=== PATIENT | female | born 1975 | race Caucasian/White ===

== ENCOUNTER 2018-06-10 08:22 | Day surgery (SDC) | payer OTHER, SELFPAY ==
[2018-06-10 08:58] LABS: Internal QC Validated? YES +Cl - CLEAR BKGD; Pregnancy, Urine Negative Negative
[2018-06-10 09:02] VITALS: BP 132/79; PULSE 65; RESP 16; TEMP 36.8; O2SAT 100; BMI 46.5
[2018-06-10 09:55] VITALS: BP 118/49; BP 132/79; PULSE 82; RESP 16; TEMP 36.8; O2SAT 93
--- NOTE | 2018-06-10 09:57 | PCM.OPRPT ---
Report of Operation Date of Procedure: 06/10/18 Pre-Operative Diagnosis: IUD removal, IUD insertion Post-Operative Diagnosis: Same plus stenotic internal cervical loss Surgery/Procedure Performed:: Hysteroscopy with Mirena removal and new Mirena IUD insertion Description of Surgical Findings:: Normal-appearing cervix, vagina, and endometrial cavity. Intact Mirena in the endometrial canal. blindstitch lining feller: None Type of Anesthesia:: MAC/Supplemental/Local Anesthesiologist: Vijay Chahal Special Medications: None Specimen's removed: IUD, not sent to pathology Drains: None Estimated Blood Loss (mL): 5 Fluids Replaced: 600 cc of LR Description of Procedure: The patient was taken to the OR where she was prepped and draped in dorsal lithotomy position. The weighted speculum was placed in the vagina and the anterior lip of the cervix was grasped with a single-tooth tenaculum. A paracervical block was administered with 20 cc1% lidocaine with 1-100,000 epinephrine solution. The cervix was dilated serially with Hegar dilators. The internal cervical loss was somewhat stenotic but able to be dilated carefully. The 5mm hysteroscope was placed into the uterine cavity and the above findings were noted. Bilateral tubal ostia were identified. T hysteroscopic grasper was used to grasp the IUD strings and the IUD and hysteroscope were brought out together from the cervix and vagina. The IUD was intact and was not stuck in the endometrium or embedded. The instruments were removed from the vagina. The specimen was handed off and sent to pathology. All sponge and needle counts were correct. Vaginal sweep was performed by me. The patient was awakened and taken to the recovery room in stable condition. Hysteroscopic ins: 100 cc normal saline Hysteroscopic outs: 50 cc Findings: Endometrial cavity: Normal, no fibroids or polyps noted Cervix: Normal Vagina: Normal
[2018-06-10 10:00] VITALS: BP 114/59; BP 132/79; PULSE 78; RESP 16; O2SAT 95
[2018-06-10 10:05] VITALS: BP 120/59; BP 132/79; PULSE 80; RESP 18; O2SAT 95
[2018-06-10 10:10] VITALS: BP 122/61; BP 132/79; PULSE 71; RESP 18; TEMP 36.6; O2SAT 100
--- OUTSIDE RECORDS SUMMARY | 2018-08-05 08:06 | XMS RPT_ITS ---
:1975 Author Organization OHIP Care Team Providers Name Role Phone MICHAEL WILKES Attending Unavailable RAYSAJOSSELYN (SIDING APPLICATOR) Attending Unavailable RAYSA, JOSSELYN (SIDING APPLICATOR) Referring Unavailable RAYSA, JOSSELYN (SIDING APPLICATOR) Referring Unavailable RAYSA, JOSSELYN (SIDING APPLICATOR) Attending Unavailable CHAPIS WOLFE (GINA) Attending Unavailable Michael Wilkes Attending Unavailable Michael Wilkes Referring Unavailable Brandt Guillaume Primary Care Unavailable PROBLEMS PROBLEMS DATE TYPE CONDITION / CODE ATTENDING STATUS SOURCE 06/07/2018 Active Encounter for NA Active [facility] screening [facility] [place] mammogram for Repository malignant neoplasm of breast / Z12.31(ICD-10) PROCEDURES PROCEDURES No Procedure Records FoundRESULTS RESULTS PROGRESS Observed: 06/11/2018 Status: COMPLETED Source: [place] 4:51 PM [facility] REPOSITORY HNO ID: [id number] Author: Lizy Cavanaugh Service: (none) Author Type: Physician Type: Progress Notes Filed: 06/11/2018 4:51 PM Note Text: Patient underwent hysteroscopy with IUD removal at [facility] without complications. An new IUD was placed. It was a Mirena. Strings were cut to 2.5 cm. Patient was discharged home with routine instructions. She is to follow up in 1 month. Lizy Cavanaugh MD OPERATIVE REPORT Observed: 06/10/2018 Status: F Source: [place] 10:01 AM [facility] REPOSITORY [facility] Medical Records Department [address] [place] [id number] Operative Report 06/10/18 0957 MR#: [id number] Acct: [id number] Name: PETRA VILLA Rep #: [id number] : 1975 42 From: Lizy Cavanaugh MD PCP: Brandt Guillaume MD Status: [facility] Y Location: [place] [address] Report of Operation Date of Procedure: 06/10/18 Pre-Operative Diagnosis: IUD removal, IUD insertion Post-Operative Diagnosis: Same plus stenotic internal cervical loss Surgery/Procedure Performed:: Hysteroscopy with Mirena removal and new Mirena IUD insertion Description of Surgical Findings:: Normal-appearing cervix, vagina, and endometrial cavity. Intact Mirena in the endometrial canal. medical officer: None Type of Anesthesia:: MAC/Supplemental/Local Anesthesiologist: Vijay Chahal Special Medications: None Specimen's removed: IUD, not sent to pathology Drains: None Estimated Blood Loss (mL): 5 Fluids Replaced: 600 cc of LR Description of Procedure: The patient was taken to the OR where she was prepped and draped in dorsal lithotomy position. The weighted speculum was placed in the vagina and the anterior lip of the cervix was grasped with a single-tooth tenaculum. A paracervical block was administered with 20 cc1% lidocaine with 1-100,000 epinephrine solution. The cervix was dilated serially with Hegar dilators. The internal cervical loss was somewhat stenotic but able to be dilated carefully. The 5mm hysteroscope was placed into the uterine cavity and the above findings were noted. Bilateral tubal ostia were identified. T hysteroscopic grasper was used to grasp the IUD strings and the IUD and hysteroscope were brought out together from the cervix and vagina. The IUD was intact and was not stuck in the endometrium or embedded. The instruments were removed from the vagina. The specimen was handed off and sent to pathology. All sponge and needle counts were correct. Vaginal sweep was performed by me. The patient was awakened and taken to the recovery room in stable condition. Hysteroscopic ins: 100 cc normal saline Hysteroscopic outs: 50 cc Findings: Endometrial cavity: Normal, no fibroids or polyps noted Cervix: Normal Vagina: Normal 06/10/18 1001 <Electronically signed by Lizy Cavanaugh MD> Date Lizy Cavanaugh MD CC: Brandt Guillaume MD; Lizy Cavanaugh MD; Michael Wilkes DO Signed ,URINE Collected: 06/10/2018 Status: F Source: [place] 8:50 AM [facility] REPOSITORY TYPE CODE TESTS RESULT OUT OF REFERENCE UNITS RANGE LAB L400.8000 Negative Normal HCGUQUAL Negative Result Comment: Very dilute urine specimens, as indicated by a low specific gravity, may not contain market survey representative levels of hCG. If is still suspected, a first morning urine specimen should be collected 48 hours later and tested. Performed By: #### [id number] #### [facility] [address] [place], [address] CNOP Observed: 06/10/2018 Status: COMPLETED Source: [place] 12:00 AM [facility] REPOS[facility] Operative Note (Enc) (WOOB) Progress Notes: Lizy Cavanaugh MD 06/11/2018 4:51 PM Signed Patient underwent hysteroscopy with IUD removal at [facility] without complications. An new IUD was placed. It was a Mirena. Strings were cut to 2.5 cm. Patient was discharged home with routine instructions. She is to follow up in 1 month. Lizy Cavanaugh MD Encounter Status:Closed by LIZY CAVANAUGH MD on 06/11/18 HISTORY PHYSICAL Observed: 06/08/2018 Status: COMPLETED Source: [place] 12:05 PM [facility] REPOSIT[facility] HNO ID: [id number] Author: Michael Wilkes Service: (none) Author Type: Physician Type: HANDP Filed: 06/08/2018 12:09 PM Note Text: Petra Groves is a 42 year old female who presents for pre-op HANDP. HPI: Doing well. No complaints or symptoms. Has Mirena IUD in place. Placed 03/23/2013. IUD was unable to be removed in the office on 06/07/18 as strings were not visible, and IUD was felt to be embedded anteriorly. PAST MEDICAL HISTORY Diagnosis Date - Abnormal Papanicolaou smear of cervix and cervical HPV 1996 colposcopy-negative since - Allergic rhinitis, cause unspecified - Human papillomavirus in conditions classified elsewhere and of unspecified site - Migraine - Premenstrual tension syndromes PMDD PAST SURGICAL HISTORY Procedure Laterality Date - COLPOSCOPY (VAGINOSCOPY) 12/14/2007 Colposcopy, ECC, JUNIOR pap - GASTRIC BYPASS,OBESE<100CM JARETT-EN-Y 12/14 [place] - INCISION EARDRUM,ASPIR,GEN ANESTH Myringotomy/tubes - LAPAROSCOPIC CHOLEYCYSTECTOMY 01/14 - REMOVE TONSILS/ADENOIDS,<12 Y/O Tonsil/adenoidectomy FAMILY HISTORY Problem Relation Age of Onset - Thyroid Mother - Asthma Mother - GI Mother GERD - Diabetes Mother - other (Migraine) Mother - Lipids Father - Hypertension Father - Diabetes Maternal Grandmother - Stroke Maternal Grandmother - Diabetes Maternal Grandfather - Diabetes Paternal Grandmother - Diabetes Maternal Aunt - Diabetes Maternal Uncle - Cancer Paternal Grandfather pancreatic - other (Glaucoma) Paternal Grandfather - other (Nephrolithiasis) Paternal Grandfather - Seizures Maternal Aunt x 2 Social History Marital status: Spouse name: Lewis Years of education: Number of children: 1 Occupational History Occupation Employer Comment [employer] * [employer]* [employer] * Social History Main Topics Smoking status: Never Smoker Smokeless tobacco: Never Used Alcohol use: Yes Comment: rarely Drug use: No Sexual activity: Yes Partners with: Male control/protection: IUD Comment: mirena 03/2013 Social History Narrative Merged History Encounter Current Outpatient Prescriptions: levonorgestrel (MIRENA) 20 mcg/24 hour (5 years) IUD 1 Each by INTRAUTERINE route one time only. No current facility-administered medications for this visit. Allergies As of Date: 06/08/2018 Allergen Noted Reaction ENVIRONMENTAL [OTHER] 10/27/2002 Unknown NO KNOWN DRUG ALLERGIES [OTHER] 07/27/2001 Fully Assessed 06/08/2018 REVIEW OF SYSTEMS Expanded ROS: GENERAL: No fevers HEENT: Negative for frequent or significant headaches NECK: Negative for goiter RESPIRATORY: No SOB CARDIOVASCULAR: No CP GI: No nausea, vomiting, or diarrhea : No history of dysuria, frequency or incontinence DIRECTOR OF RESEARCH AND DEVELOPMENT: +Hx of menorrhagia MUSCULOSKELETAL: Negative for joint pain or swelling, back pain or muscle pain PSYCH: No hx of depression/anxiety ENDOCRINE: No hx of diabetes NEURO: No history of syncope, paralysis, seizures or tremors Allergies and current medication updated:Yes EXAM: BP 108/70 Wt 302 lb (137.0kg) GENERAL: pleasant, female in no apparent distress HEENT: Normocephalic and atraumatic NECK: full range of motion DERMATOLOGY: Normal and without lesions CHEST: Normal inspiratory effort NEURO: exam grossly non-focal EXTREMITIES: normal ASSESSMENT AND PLAN: Encounter Diagnosis ICD-10-CM 1. IUD (intrauterine device) in place Z97.5 Discussed hysteroscopic removal of Mirena IUD, and re-insertion of Mirena IUD. Reviewed risks of surgery. Discussed alternative control options. Patient agreeable to surgery and consent signed. Discussed what to do prior to surgery, the surgery in detail, and recovery/post-op expectations. Michael Wilkes DO CNOV Observed: 06/08/2018 Status: COMPLETED Source: [place] 11:30 AM [facility] REPOSITORY Office Visit (WOOB) PETRA VILLA ([id number]) 1975 F Date Time Provider Department 06/08/18 11:30 AM MICHAEL WILKES During your visit today, we recorded the following information about you: Blood pressure Weight 108/70 137 kg Michael Wilkes MD 06/08/2018 12:09 PM Signed Petra Groves is a 42 year old female who presents for pre-op HANDP. HPI: Doing well. No complaints or symptoms. Has Mirena IUD in place. Placed 03/23/2013. IUD was unable to be removed in the office on 06/07/18 as strings were not visible, and IUD was felt to be embedded anteriorly. PAST MEDICAL HISTORY Diagnosis Date - Abnormal Papanicolaou smear of cervix and cervical HPV 1996 colposcopy-negative since - Allergic rhinitis, cause unspecified - Human papillomavirus in conditions classified elsewhere and of unspecified site - Migraine - Premenstrual tension syndromes PMDD PAST SURGICAL HISTORY Procedure Laterality Date - COLPOSCOPY (VAGINOSCOPY) 12/14/2007 Colposcopy, ECC, JUNIOR pap - GASTRIC BYPASS,OBESE<100CM JARETT-EN-Y 12/14 [place] - INCISION EARDRUM,ASPIR,GEN ANESTH Myringotomy/tubes - LAPAROSCOPIC CHOLEYCYSTECTOMY 01/14 - REMOVE TONSILS/ADENOIDS,<12 Y/O Tonsil/adenoidectomy FAMILY HISTORY Problem Relation Age of Onset - Thyroid Mother - Asthma Mother - GI Mother GERD - Diabetes Mother - other (Migraine) Mother - Lipids Father - Hypertension Father - Diabetes Maternal Grandmother - Stroke Maternal Grandmother - Diabetes Maternal Grandfather - Diabetes Paternal Grandmother - Diabetes Maternal Aunt - Diabetes Maternal Uncle - Cancer Paternal Grandfather pancreatic - other (Glaucoma) Paternal Grandfather - other (Nephrolithiasis) Paternal Grandfather - Seizures Maternal Aunt x 2 Social History Marital status: Spouse name: Lewis Years of education: Number of children: 1 Occupational History Occupation Employer Comment [employer] * [employer]* [employer] * Social History Main Topics Smoking status: Never Smoker Smokeless tobacco: Never Used Alcohol use: Yes Comment: rarely Drug use: No Sexual activity: Yes Partners with: Male control/protection: IUD Comment: mirena 03/2013 Social History Narrative Merged History Encounter Current Outpatient Prescriptions: levonorgestrel (MIRENA) 20 mcg/24 hour (5 years) IUD 1 Each by INTRAUTERINE route one time only. No current facility-administered medications for this visit. Allergies As of Date: 06/08/2018 Allergen Noted Reaction ENVIRONMENTAL [OTHER] 10/27/2002 Unknown NO KNOWN DRUG ALLERGIES [OTHER] 07/27/2001 Fully Assessed 06/08/2018 REVIEW OF SYSTEMS Expanded ROS: GENERAL: No fevers HEENT: Negative for frequent or significant headaches NECK: Negative for goiter RESPIRATORY: No SOB CARDIOVASCULAR: No CP GI: No nausea, vomiting, or diarrhea : No history of dysuria, frequency or incontinence DIRECTOR OF RESEARCH AND DEVELOPMENT: +Hx of menorrhagia MUSCULOSKELETAL: Negative for joint pain or swelling, back pain or muscle pain PSYCH: No hx of depression/anxiety ENDOCRINE: No hx of diabetes NEURO: No history of syncope, paralysis, seizures or tremors Allergies and current medication updated:Yes EXAM: BP 108/70 Wt 302 lb (137.0kg) GENERAL: pleasant, female in no apparent distress HEENT: Normocephalic and atraumatic NECK: full range of motion DERMATOLOGY: Normal and without lesions CHEST: Normal inspiratory effort NEURO: exam grossly non-focal EXTREMITIES: normal ASSESSMENT AND PLAN: Encounter Diagnosis ICD-10-CM 1. IUD (intrauterine device) in place Z97.5 Discussed hysteroscopic removal of Mirena IUD, and re-insertion of Mirena IUD. Reviewed risks of surgery. Discussed alternative control options. Patient agreeable to surgery and consent signed. Discussed what to do prior to surgery, the surgery in detail, and recovery/post-op expectations. Michael Wilkes DO Referring Provider: SELF [[id number]] Allergies As of Date: 06/08/2018 Noted Allergy Reaction Environmental [Other] 10/27/2002 16 - Unknown Comments: Cats, dust mites, molds, trees, grasses, weeds. No Known Drug Allergies [Other] 07/27/2001 Date Reviewed: 06/08/2018 Reviewed by: Michael Wilkes - Fully Assessed Reason for Visit: Pre-Op Visit [1235] Primary Visit Diagnosis:IUD (intrauterine device) in place [Z97.5] Prescriptions as of 06/08/2018 Sig: LEVONORGESTREL 20 MCG/24 HR (* 1 Each by INTRAUTERINE route * Problem List As Of Date 06/08/2018 Noted Resolved Headache(784.0) [R51] INVALID FOR*05/29/2015 PREMENSTRUAL DYSTHYMIC DISORDER [F34.1] INVALID FOR*05/29/2015 MORBID OBESITY [E66.01] INVALID FOR* ALLERGIC RHINITIS NOS [J30.9] INVALID FOR* INTERTRIGO [L53.8] INVALID FOR*05/29/2015 GENERALIZED ANXIETY DIS [F41.1] INVALID FOR* Abnormal glandular Papanicolaou smear of cervix*INVALID FOR*01/25/2013 Vitamin D Deficiency [E55.9] INVALID FOR* Calcaneal spur [M77.30] INVALID FOR*05/29/2015 Screening breast examination [Z12.31] INVALID FOR*12/11/2016 Follow-up and Disposition History Recorded Encounter Status:Closed by MICHAEL WILKES MD on 06/08/18 SHAYY Observed: 06/07/2018 Status: COMPLETED Source: [place] 11:45 AM [facility] REPOSIT[facility] Office Visit (WOOB) CALVIN VILLAA Denise ([id number]) 1975 F Date Time Provider Department 06/07/18 11:45 AM JOSSELYN TABARES ([facility]) WOOB During your visit today, we recorded the following information about you: Blood pressure Weight 110/60 137.2 kg Josselyn Tabares APRN.CNP 06/07/2018 12:25 PM Signed Petra Groves presents for removal of IUD due to time for replacement. UNIVERSAL PROTOCOL / SAFETY CHECKLIST Procedure to be performed: Mirena removal Sign in Communication: Completed Time Out: Team Confirms the Correct Patient, Correct Procedure, Correct Site and Site Marking, Correct Position (if applicable), Prep and Dry Time (if applicable). Time: 1130 Affirmation of Time Out: YES Sign Out Discussion: Completed PROCEDURE: Not able to visualize strings, unable to tease string down, unable to dislodge with forceps. Multiple attempt made by myself and Dr Wilkes. ASSESSMENT/PLAN: IUD not removed Dr Wilkes spoke with pt regarding the need to perform hysteroscopy to removal and replace IUD. Pt verbalized understanding of the plan. Pt will be called with pre-op and surgery time. IVAN Baez LPN 06/07/2018 11:15 AM Signed POST IUD INSTRUCTIONS You may have irregular bleeding during the first 3 months of use. You may have mild-severe cramping for the next 48 hours. You may use over the counter medication (Motrin, Tylenol) as needed. Your IUD must be removed or replaced in 3 years if you have a Leola, 5 years if you have a Mirena or Kyleena and 10 years if you have a Paragard. Call my office for signs/symptoms of infection such as severe cramping, fever, or unusual bleeding. Check for string placement as instructed by your doctor. If you have any additional questions, please contact the office. Referring Provider: JOSSELYN TABARES ([facility]) [[id number]] Allergies As of Date: 06/07/2018 Noted Allergy Reaction Environmental [Other] 10/27/2002 16 - Unknown Comments: Cats, dust mites, molds, trees, grasses, weeds. No Known Drug Allergies [Other] 07/27/2001 Date Reviewed: 06/07/2018 Reviewed by: Daya Winslow LPN - Fully Assessed Reason for Visit: Insertion Of IUD [291] Insertion Of IUD [291] Reason For Visit History Recorded Primary Visit Diagnosis:Unsuccessful attempt to remove intrauterine device (IUD) [Z53.8, Z97.5] Order(s):[facility] QUAL UR B/O [[id number]] Order #: [id number] Prescriptions as of 06/07/2018 Sig: LEVONORGESTREL 20 MCG/24 HR (* 1 Each by INTRAUTERINE route * Problem List As Of Date 06/07/2018 Noted Resolved Headache(784.0) [R51] INVALID FOR*05/29/2015 PREMENSTRUAL DYSTHYMIC DISORDER [F34.1] INVALID FOR*05/29/2015 MORBID OBESITY [E66.01] INVALID FOR* ALLERGIC RHINITIS NOS [J30.9] INVALID FOR* INTERTRIGO [L53.8] INVALID FOR*05/29/2015 GENERALIZED ANXIETY DIS [F41.1] INVALID FOR* Abnormal glandular Papanicolaou smear of cervix*INVALID FOR*01/25/2013 Vitamin D Deficiency [E55.9] INVALID FOR* Calcaneal spur [M77.30] INVALID FOR*05/29/2015 Screening breast examination [Z12.31] INVALID FOR*12/11/2016 Other instructions from your clinician: POST IUD INSTRUCTIONS You may have irregular bleeding during the first 3 months of use. You may have mild-severe cramping for the next 48 hours. You may use over the counter medication (Motrin, Tylenol) as needed. Your IUD must be removed or replaced in 3 years if you have a Leola, 5 years if you have a Mirena or Kyleena and 10 years if you have a Paragard. Call my office for signs/symptoms of infection such as severe cramping, fever, or unusual bleeding. Check for string placement as instructed by your doctor. If you have any additional questions, please contact the office. Disposition: Return in about 5 weeks (around 07/12/2018) for Follow Up In 4-6 Weeks. Follow-up and Disposition History Recorded Encounter Status:Closed by JOSSELYN TABARES on 06/07/18 CNCO Observed: 06/07/2018 Status: COMPLETED Source: [place] 11:38 AM [facility] REPOSIT[facility] HNO ID: [id number] Author: Mammography Coordinator Service: (none) Author Type: Physician Type: Letter Filed: 06/08/2018 11:32 PM Note Text: June 07, 2018 PID: [id number] Petra Groves [address] [place] [address] Dear Ms. Rosita Groves, We are pleased to inform you that the results of your recent breast imaging exam on 06/07/2018 are normal. Early detection of cancer is very important. We also understand recommendations regarding breast cancer screening are controversial. Please discuss with your primary care provider which strategy is best for you and whether a mammogram is right for you. Your imaging studies and report will be kept on file at [facility] as part of your permanent medical record and are available for your continuing care. Thank you for allowing us to help in meeting your health care needs. Sincerely, Dr. Mosley Interpreting Radiologist [facility] (Normal over 40) PROGRESS Observed: 06/07/2018 Status: COMPLETED Source: [place] 11:15 AM [facility] REPOSIT[facility] HNO ID: [id number] Author: Josselyn Tabares Service: (none) Author Type: Nurse Practitioner Type: Progress Notes Filed: 06/07/2018 12:25 PM Note Text: Petra Groves presents for removal of IUD due to time for replacement. UNIVERSAL PROTOCOL / SAFETY CHECKLIST Procedure to be performed: Mirena removal Sign in Communication: Completed Time Out: Team Confirms the Correct Patient, Correct Procedure, Correct Site and Site Marking, Correct Position (if applicable), Prep and Dry Time (if applicable). Time: 1130 Affirmation of Time Out: YES Sign Out Discussion: Completed PROCEDURE: Not able to visualize strings, unable to tease string down, unable to dislodge with forceps. Multiple attempt made by myself and Dr Wilkes. ASSESSMENT/PLAN: IUD not removed Dr Wilkes spoke with pt regarding the need to perform hysteroscopy to removal and replace IUD. Pt verbalized understanding of the plan. Pt will be called with pre-op and surgery time. Josselyn Tabares APRN.SIDING APPLICATOR [facility] SCREENING Observed: 06/07/2018 Status: F Source: [place] 11:00 AM [facility] REPOSITORY * * *Final Report* * * DATE OF EXAM: Jun 07 2018 11:00AM [facility]SE [facility] 0581 - [facility] SCREENING / PROCEDURE REASON: Encounter for screening mammogram for breast cancer * * * * Physician Interpretation * * * * RESULT: #[id number] - [facility] SCREENING BILATERAL DIGITAL SCREENING MAMMOGRAM WITH CAD: 06/07/2018 HISTORY: Encounter For Screening Mammogram For Breast Cancer /Screening Mammogram - patient reports NO breast symptoms /Priors available for comparison. RESULT: TECHNIQUE: The study was acquired using full field digital technology and interpreted from soft copy. Current study was also evaluated with a Computer Aided Detection (CAD). Comparison is made to exam dated: 09/14/2015 mammogram - [facility]. There are scattered fibroglandular elements in both breasts. No significant masses, calcifications, or other findings are seen in either breast. There has been no significant interval change. IMPRESSION: There is no mammographic evidence of malignancy. A 1 year screening mammogram is recommended. Alon ely/christopher:06/07/2018 11:38:36 Bed And Breakfast Operator(s): RT Shivam(R)(M), [facility] letter sent: Normal over 40 Mammogram BI-RADS: 1 Negative Multiple national specialty organizations have released breast cancer screening guidelines for women at average risk for developing breast cancer - guidelines that are based on both evidence and opinion, yet differ on when to start and how often to screen for breast cancer. With representation from Breast Imaging, Internal Medicine, Women's Health, Family Medicine, and Medical/Surgical Oncology, the [facility] has carefully reviewed the data and reached the following consensus: 1) All women should engage in shared decision-making with their providers to decide when to start and how often to screen; 2) All women should have the opportunity to start screening mammography at age 40; 3) For women ages 45-55, we recommend annual screening mammograms; 4) For women ages 55 and over, we support both the transition from an annual to a biennial interval if this aligns more with patient's values and preferences, or continuation with annual screening; 5) All women should discuss with their providers when to stop screening mammograms. Weather Reporter: Christopher Transcribe Date/Time: Jun 07 2018 10:46A Dictated by: ALON MOSLEY MD This examination was interpreted and the report reviewed and electronically signed by: ALON MOSLEY MD on Jun 07 2018 11:38AM EST [id number] HPV W/GENOTYPE Collected: 03/29/2018 Status: F Source: [place] 1:28 PM [facility] RE[facility] TYPE CODE TESTS RESULT OUT OF REFERENCE UNITS RANGE LAB HPVT16 HPV HighRisk Negative for Type 16 HPV DNA high risk type 16 by PCR. LAB HPVT18 HPV HighRisk Negative for Type 18 HPV DNA high risk type 18 by PCR. LAB HPVHRO HPV HighRisk Negative for Other HPV DNA high risk types: 31,33,35,39,45 ,51,52,56,58,5 9,66,68 by PCR. Result Comment: This test was developed and its performance characteristics determined by [facility]). It has not been cleared or approved by the FDA. [facility] is regulated under CLIA as qualified to perform high-complexity testing. This test is used for clinical purposes. It should not be regarded as inv estigational or for research. Performed By: #### HPVHRR #### [facility] [address] [place], [place] [address] CYTOLOGY Observed: 03/29/2018 Status: C Source: [place] 1:28 PM [facility] RE[facility] ADDITIONAL PROCEDURES PRESENT ---Abnormal Pap Test - Epithelial Cell Abnormality--- Specimen originated from [facility] Specimen #: [id number] Submitting Physician: JOSSELYN TABARES SPECIMEN SUBMITTED A: CERVICAL, SCREENING, FLUID FINAL DIAGNOSIS A. CERVICAL, SCREENING, FLUID Satisfactory for interpretation. Epithelial cell abnormality. Atypical squamous cells of undetermined significance (ASC-US). This specimen has been analyzed by the ThinPrep Imaging System, an automated imaging and review system, which assists the laboratory in evaluating cells on ThinPrep Pap tests. Following automated imaging, selected silva from every slide are reviewed by a horse rider. Zuleika Salinas M.D. (Electronic Signature) ADDITIONAL PROCEDURE(S) HUMAN PAPILLOMA VIRUS Date Ordered: 03/30/2018 Date Reported: 03/31/2018 Procedure Results and Interpretation Negative for HPV DNA high risk type 16 by PCR. Negative for HPV DNA high risk type 18 by PCR. Negative for HPV DNA high risk types: 31,33,35,39,45,51,52,56,58,59,66,68 by PCR. This test was developed and its performance characteristics determined by [facility] ([facility]). It has not been cleared or approved by the FDA. [facility] is regulated under CLIA as qualified to perform high-complexity testing. This test is used for clinical purposes. It should not be regarded as investigational or for research. CLINICAL DATA ROUTINE EXAM, HPV Testing: Yes, automatic HPV patients over 30 Date of Last Menstrual Period: IUD STAINS A: CERVICAL, SCREENING, FLUID THIN PREP DIRECTOR OF RESEARCH AND DEVELOPMENT Date of Report: 04/07/2018 Date of Procedure: 03/29/2018 Date of Receipt: 03/30/2018 Submitted by: JOSSELYN TABARES Location: [facility] Diagnostic interpretation performed at [facility], [address], [place] [address]. The Pap Smear is a screening test for cervical cancer. False negative results occur with all screening tests, emphasizing the need for rescreening at recommended intervals, and clinical correlation. PROGRESS Observed: 03/29/2018 Status: COMPLETED Source: [place] 1:15 PM [facility] RE[facility] HNO ID: [id number] Author: Nalini Lomeli Ma Service: (none) Author Type: (none) Type: Progress Notes Filed: 03/29/2018 1:52 PM Note Text: patient declined freight solicitor Nalini Lomeli Ma CNOV Observed: 03/29/2018 Status: COMPLETED Source: [place] 1:15 PM [facility] REPOS[facility] Office Visit (WOOB) ROSITA PETRA GROVES Denise ([id number]) 1975 F Date Time Provider Department 03/29/18 1:15 PM JOSSELYN TABARES (CHAD) WOOB During your visit today, we recorded the following information about you: Blood pressure Weight Height 126/78 136.4 kg 1.69 m Josselyn Tabares APRN.CNP 03/29/2018 1:52 PM Marixa Walker Rosita Groves is a 42 year old who presents for her annual gynecologic exam without complaints. Menses: no menses - Mirena IUD. Contraception: IUD HPV vaccine: N/A Last Pap: 2011 normal HPV: negative History of abnormal pap: Yes Last mammogram: 2016normal Sexually active: Yes Patient concerns for STD exposure: No. Pain with intercourse: No Postcoital bleeding: No Hot flashes: No Night sweats: No Vaginal dryness: No Obstetric History T1 L1 SAB0 TAB0 Ectopic0 Multiple0 Live Births1 PAST MEDICAL HISTORY Diagnosis Date - Abnormal Papanicolaou smear of cervix and cervical HPV 1996 colposcopy-negative since - Allergic rhinitis, cause unspecified - Human papillomavirus in conditions classified elsewhere and of unspecified site - Migraine - Premenstrual tension syndromes PMDD PAST SURGICAL HISTORY Procedure Laterality Date - COLPOSCOPY (VAGINOSCOPY) 12/14/2007 Colposcopy, ECC, JUNIOR pap - GASTRIC BYPASS,OBESE<100CM JARETT-EN-Y 12/14 [place] - INCISION EARDRUM,ASPIR,GEN ANESTH Myringotomy/tubes - LAPAROSCOPIC CHOLEYCYSTECTOMY 01/14 - REMOVE TONSILS/ADENOIDS,<12 Y/O Tonsil/adenoidectomy FAMILY HISTORY Problem Relation Age of Onset - Thyroid Mother - Asthma Mother - GI Mother GERD - Diabetes Mother - other (Migraine) Mother - Lipids Father - Hypertension Father - Diabetes Maternal Grandmother - Stroke Maternal Grandmother - Diabetes Maternal Grandfather - Diabetes Paternal Grandmother - Diabetes Maternal Aunt - Diabetes Maternal Uncle - Cancer Paternal Grandfather pancreatic - other (Glaucoma) Paternal Grandfather - other (Nephrolithiasis) Paternal Grandfather - Seizures Maternal Aunt x 2 SOCIAL HISTORY Social History Substance Use Topics - Smoking status: Never Smoker - Smokeless tobacco: Never Used - Alcohol use Yes Comment: rarely REVIEW OF SYSTEMS Abdomen: No abdominal pain, nausea, vomiting, diarrhea, or constipation. No bloating, early satiety, indigestion, or increased flatulence. Bladder: No dysuria, gross hematuria, urinary frequency, urinary urgency, or incontinence. Breast: No breast lumps, nipple d/c, overlying skin changes, redness or skin retraction. Allergies and current medication updated:Yes EXAM: There were no vitals taken for this visit. GENERAL: pleasant, female in no apparent distress HEENT: Normocephalic, atraumatic, mucus membranes moist and no lesions NECK: Supple, full range of motion, no adenopathy and thyroid normal DERMATOLOGY: Normal, without lesions, non-icteric and non-hirsute BREAST: soft, non-tender, symmetric, no dominant mass, normal nipple-areolar complex, no lymphadenopathy and no nipple discharge CHEST: Normal inspiratory effort ABDOMEN: soft, non-tender and no masses PELVIC: external genitalia normal, normal Bartholin's glands, urethra, [place]'s glands, no vulvar lesions, no cervical lesions, good vaginal support, physiologic discharge present, normal appearing perineal body and perianal region, just seen tip of IUD string BIMANUAL: uterus normal size, shape and consistency, no adnexal masses, non-tender and no cervical motion tenderness RECTOVAGINAL: deferred. NEURO: alert and oriented x3,exam grossly non-focal EXTREMITIES: normal ASSESSMENT/PLAN: 1) Health maintenance: Pap done with HPV. Mammogram ordered. Nutrition, exercise and routine health maintenance exams reviewed. Calcium/Vitamin D supplementation information provided. 2) Contraception: IUD. Contraceptive options reviewed and information provided. 3) STD screening: Declined STD check. 4) Follow up one year or sooner as needed Josselyn Tabares APRN.CHAD Lomeli Ma 03/29/2018 1:52 PM Signed patient declined freight solicitor Nalini Lomeli Ma Referring Provider: SELF [[id number]] Allergies As of Date: 03/29/2018 Noted Allergy Reaction Environmental [Other] 10/27/2002 16 - Unknown Comments: Cats, dust mites, molds, trees, grasses, weeds. No Known Drug Allergies [Other] 07/27/2001 Date Reviewed: 03/29/2018 Reviewed by: Josselyn Tabares - Fully Assessed Primary Visit Diagnosis:Encounter for gynecological examination (general) (routine) without abnormal findings [Z01.419] Other Visit Diagnoses:Screening for cervical cancer [Z12.4] Encounter for screening for human papillomavirus (HPV) [Z11.51] Encounter for screening mammogram for breast cancer [Z12.31] Order(s):ONEIL SCREENING [9913610] Order #: [id number] FUTURE PAP FLUID CERVICAL SCREENING [1855105] Order #: [id number] Prescriptions as of 03/29/2018 Sig: LEVONORGESTREL 20 MCG/24 HR (* 1 Each by INTRAUTERINE route * Medication notes this encounter CYANOCOBALAMIN (VIT B-12) 1,000 MCG SUBLINGUAL TABLET >> Nalini Lomeli Ma 03/29/2018 1:12 PM >> NALINI LOMELI MA Mar 29, 2018 1:12 PM Pt no longer taking IRON (FERROUS SULFATE) ORAL >> Nalini Lomeli Ma 03/29/2018 1:12 PM >> NALINI LOMELI MA Mar 29, 2018 1:12 PM Pt no longer taking CHOLECALCIFEROL (VITAMIN D3) 2,000 UNIT CAPSULE >> Nalini Lomeli Ma 03/29/2018 1:12 PM >> NALINI LOMELI MA Mar 29, 2018 1:12 PM Pt no longer taking Problem List As Of Date 03/29/2018 Noted Resolved Headache(784.0) [R51] INVALID FOR*05/29/2015 PREMENSTRUAL DYSTHYMIC DISORDER [F34.1] INVALID FOR*05/29/2015 MORBID OBESITY [E66.01] INVALID FOR* ALLERGIC RHINITIS NOS [J30.9] INVALID FOR* INTERTRIGO [L53.8] INVALID FOR*05/29/2015 GENERALIZED ANXIETY DIS [F41.1] INVALID FOR* Abnormal glandular Papanicolaou smear of cervix*INVALID FOR*01/25/2013 Vitamin D Deficiency [E55.9] INVALID FOR* Calcaneal spur [M77.30] INVALID FOR*05/29/2015 Screening breast examination [Z12.31] INVALID FOR*12/11/2016 Medications Discontinued During This Encounter Azelastine (ASTEPRO) 0.15 % (205.5 m* 1 Wilian* 11 11/09/2013 03/29/2018 Route: EACH NOSTRIL Sig: Use 2 Sprays in each nostril once daily as needed. Patient not taking: Reported on 11/10/2017 Disc: Reason for discontinue is not on file. CHOLECALCIFEROL (VITAMIN D3) 2,000 U* 0 06/27/2009 03/29/2018 Class: OTC Route: ORAL Sig: Take one(1) capsule daily. Disc: Reason for discontinue is not on file. codeine-guaiFENesin (ROBITUSSIN AC) * 120 * 0 08/22/2014 03/29/2018 Class: Print RX Route: ORAL Sig: Take 5-10 mL by mouth four times daily as needed for Cough. May cause drowsiness. Patient not taking: Reported on 11/10/2017 Disc: Reason for discontinue is not on file. Cyanocobalamin (VITAMIN B-12) 1,000 * 03/29/2018 Class: Med Update Route: SUBLINGUAL Sig: Dissolve under the tongue. Disc: Reason for discontinue is not on file. fexofenadine 180 mg ORAL tablet 90 t* 3 01/16/2011 03/29/2018 Class: Print RX Route: ORAL Sig: Take 1 tablet by mouth once daily. Patient not taking: Reported on 11/10/2017 Disc: Reason for discontinue is not on file. IRON, FERROUS SULFATE, ORAL 03/29/2018 Class: Med Update Route: ORAL Sig: Take by mouth once daily. Disc: Reason for discontinue is not on file. ketorolac (ACULAR) 0.5 % ophthalmic * 1 Wilian* 2 11/26/2012 03/29/2018 Route: BOTH EYES Sig: Use 1 Drop in both eyes four times daily. Patient not taking: Reported on 11/10/2017 Disc: Reason for discontinue is not on file. montelukast (SINGULAIR) 10 mg tablet 30 t* 11 11/09/2013 03/29/2018 Route: ORAL Sig: Take 1 tablet by mouth daily at bedtime. Patient not taking: Reported on 11/10/2017 Disc: Reason for discontinue is not on file. olopatadine (PATANOL) 0.1 % ophthalm* 1 Wilian* 11 11/09/2013 03/29/2018 Route: BOTH EYES Sig: Use 1-2 Drops in both eyes twice daily as needed. Patient not taking: Reported on 11/10/2017 Disc: Reason for discontinue is not on file. Disposition: Return in 1 year (on 03/29/2019) for Annual Exam. Follow-up and Disposition History Recorded Encounter Status:Closed by JOSSELYN TABARES on 03/29/18 PROGRESS Observed: 03/29/2018 Status: COMPLETED Source: [place] 1:08 PM [facility] REPOSITORY O ID: [id number] Author: Josselyn Serrano) Raysa Service: (none) Author Type: Nurse Practitioner Type: Progress Notes Filed: 03/29/2018 1:52 PM Note Text: Petra Groves is a 42 year old who presents for her annual gynecologic exam without complaints. Menses: no menses - Mirena IUD. Contraception: IUD HPV vaccine: N/A Last Pap: 2011 normal HPV: negative History of abnormal pap: Yes Last mammogram: 2015normal Sexually active: Yes Patient concerns for STD exposure: No. Pain with intercourse: No Postcoital bleeding: No Hot flashes: No Night sweats: No Vaginal dryness: No Obstetric History T1 L1 SAB0 TAB0 Ectopic0 Multiple0 Live Births1 PAST MEDICAL HISTORY Diagnosis Date - Abnormal Papanicolaou smear of cervix and cervical HPV 1996 colposcopy-negative since - Allergic rhinitis, cause unspecified - Human papillomavirus in conditions classified elsewhere and of unspecified site - Migraine - Premenstrual tension syndromes PMDD PAST SURGICAL HISTORY Procedure Laterality Date - COLPOSCOPY (VAGINOSCOPY) 12/14/2007 Colposcopy, ECC, JUNIOR pap - GASTRIC BYPASS,OBESE<100CM JARETT-EN-Y 12/14 [place] - INCISION EARDRUM,ASPIR,GEN ANESTH Myringotomy/tubes - LAPAROSCOPIC CHOLEYCYSTECTOMY 01/14 - REMOVE TONSILS/ADENOIDS,<12 Y/O Tonsil/adenoidectomy FAMILY HISTORY Problem Relation Age of Onset - Thyroid Mother - Asthma Mother - GI Mother GERD - Diabetes Mother - other (Migraine) Mother - Lipids Father - Hypertension Father - Diabetes Maternal Grandmother - Stroke Maternal Grandmother - Diabetes Maternal Grandfather - Diabetes Paternal Grandmother - Diabetes Maternal Aunt - Diabetes Maternal Uncle - Cancer Paternal Grandfather pancreatic - other (Glaucoma) Paternal Grandfather - other (Nephrolithiasis) Paternal Grandfather - Seizures Maternal Aunt x 2 SOCIAL HISTORY Social History Substance Use Topics - Smoking status: Never Smoker - Smokeless tobacco: Never Used - Alcohol use Yes Comment: rarely REVIEW OF SYSTEMS Abdomen: No abdominal pain, nausea, vomiting, diarrhea, or constipation. No bloating, early satiety, indigestion, or increased flatulence. Bladder: No dysuria, gross hematuria, urinary frequency, urinary urgency, or incontinence. Breast: No breast lumps, nipple d/c, overlying skin changes, redness or skin retraction. Allergies and current medication updated:Yes EXAM: There were no vitals taken for this visit. GENERAL: pleasant, female in no apparent distress HEENT: Normocephalic, atraumatic, mucus membranes moist and no lesions NECK: Supple, full range of motion, no adenopathy and thyroid normal DERMATOLOGY: Normal, without lesions, non-icteric and non-hirsute BREAST: soft, non-tender, symmetric, no dominant mass, normal nipple-areolar complex, no lymphadenopathy and no nipple discharge CHEST: Normal inspiratory effort ABDOMEN: soft, non-tender and no masses PELVIC: external genitalia normal, normal Bartholin's glands, urethra, [place]'s glands, no vulvar lesions, no cervical lesions, good vaginal support, physiologic discharge present, normal appearing perineal body and perianal region, just seen tip of IUD string BIMANUAL: uterus normal size, shape and consistency, no adnexal masses, non-tender and no cervical motion tenderness RECTOVAGINAL: deferred. NEURO: alert and oriented x3,exam grossly non-focal EXTREMITIES: normal ASSESSMENT/PLAN: 1) Health maintenance: Pap done with HPV. Mammogram ordered. Nutrition, exercise and routine health maintenance exams reviewed. Calcium/Vitamin D supplementation information provided. 2) Contraception: IUD. Contraceptive options reviewed and information provided. 3) STD screening: Declined STD check. 4) Follow up one year or sooner as needed Josselyn Tabares APRN.SIDING APPLICATOR PROGRESS Observed: 11/10/2017 Status: COMPLETED Source: [place] 11:43 AM [facility] [place] REPOSITORY [facility] ID: [id number] Author: Chapis Wolfe (Gina) Service: (none) Author Type: Physician Tier In Type: Progress Notes Filed: 11/13/2017 11:44 AM Note Text: SPINE SURGERY NEW PATIENT PCP: Darinel Guillaume REFERRING PROVIDER: SELF SUBJECTIVE HISTORY OF PRESENT ILLNESS: Petra Groves is a 41 year old female presenting with spouse. CHIEF COMPLAINT: back pain PRECIPITATING EVENT: fall on wet leaf Patient presents for 2nd opinion. Back pain began in April, patient fell on wet leaf. Pain in low back described as aching, throbbing and sharp and constant in nature. Occasional right posterior leg pain tht occurs a couple times per week. Gabapentin- Afraid of Side effects no relief PT- One month ago- A few hours relief after she does it Chiropractor without relief PAIN EVALUATION 11/10/2017 Pain Score: 7 Pain Location: Back-Lower Description: Aching;Stabbing Duration Amount of Time: 8 Duration Units: Months Frequency: Continuous Intervention: Medication;Cold;Heat;Relaxation;Therapeutic techniques-CPRP;Exercise Aggravating Factors: Standing, Walking, Bending Alleviating Factors: Heat application, Stretching Pain Ratio: Pain in the back is greater than in the leg DERMATOMAL DISTRIBUTION: Right: S1 AMBULATORY STATUS: Independent Community Distances PREVIOUS CONSERVATIVE TREATMENTS: Physical Therapy: Date(s) October 2016 to present which has helped her pain Manipulation Gabapentin- Afraid of Side effects no relief PT- One month ago- A few hours relief after she does it Chiropractor without relief PREVIOUS SPINAL SURGERY: None ACTIVE PROBLEM LIST Morbid Obesity (Hcc) Allergic Rhinitis, Cause Unspecified Generalized Anxiety Disorder Vitamin D Deficiency PAST MEDICAL HISTORY Diagnosis Date - Abnormal Papanicolaou smear of cervix and cervical HPV 1996 colposcopy-negative since - Allergic rhinitis, cause unspecified - Human papillomavirus in conditions classified elsewhere and of unspecified site - Migraine - Premenstrual tension syndromes PMDD PAST SURGICAL HISTORY Procedure Laterality Date - COLPOSCOPY (VAGINOSCOPY) 12/14/2007 Colposcopy, ECC, JUNIOR pap - GASTRIC BYPASS,OBESE<100CM JARETT-EN-Y 12/14 [place] - INCISION EARDRUM,ASPIR,GEN ANESTH Myringotomy/tubes - LAPAROSCOPIC CHOLEYCYSTECTOMY 01/14 - REMOVE TONSILS/ADENOIDS,<12 Y/O Tonsil/adenoidectomy FAMILY HISTORY Problem Relation Age of Onset - Thyroid Mother - Asthma Mother - GI Mother GERD - Diabetes Mother - Migraine [OTHER] Mother - Lipids Father - Hypertension Father - Diabetes Maternal Grandmother - Stroke Maternal Grandmother - Diabetes Maternal Grandfather - Diabetes Paternal Grandmother - Diabetes Maternal Aunt - Diabetes Maternal Uncle - Cancer Paternal Grandfather pancreatic - Glaucoma [OTHER] Paternal Grandfather - Nephrolithiasis [OTHER] Paternal Grandfather - Seizures Maternal Aunt x 2 Social History Marital status: Spouse name: Lewis Years of education: Number of children: 1 Occupational History 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 - No Known Drug Aller* MEDICATIONS: codeine-guaiFENesin (ROBITUSSIN AC) 10-100 mg/5 mL syrup Take 5-10 mL by mouth four times daily as needed for Cough. May cause drowsiness. Azelastine (ASTEPRO) 0.15 % (205.5 mcg) spry Use 2 Sprays in each nostril once daily as needed. montelukast (SINGULAIR) 10 mg tablet Take 1 tablet by mouth daily at bedtime. olopatadine (PATANOL) 0.1 % ophthalmic solution Use 1-2 Drops in both eyes twice daily as needed. levonorgestrel (MIRENA) 20 mcg/24 hour (5 years) IUD 1 Each by INTRAUTERINE route one time only. ketorolac (ACULAR) 0.5 % ophthalmic solution Use 1 Drop in both eyes four times daily. Cyanocobalamin (VITAMIN B-12) 1,000 mcg SUBLINGUAL Subl Dissolve under the tongue. IRON, FERROUS SULFATE, ORAL Take by mouth once daily. fexofenadine 180 mg ORAL tablet Take 1 tablet by mouth once daily. CHOLECALCIFEROL (VITAMIN D3) 2,000 UNIT CAP Take one(1) capsule daily. REVIEW OF SYSTEMS: Review of Systems Constitutional: Negative Eyes: Negative Hent: Negative Cardiovascular: Negative Respiratory: Negative GI: Negative : Negative Endocrine: Negative Musculoskeletal Positive for Back Pain and Muscle Pain Integumentary: Negative Heme/Lymph: Negative Allergy/Immunologic: Negative Psychiatric: Negative Patient's Review of Systems has been reviewed with the patient and updated as appropriate. OBJECTIVE: PHYSICAL EXAM BP 135/89 Pulse 78 Resp 18 Ht 172.7 cm (5' 8) Wt 129.3 kg (285 lb) BMI 43.33 kg/m? GENERAL APPEARANCE: Obese. NEURO PSYCH: Patient oriented to person, place, and time. Mood pleasant. Benign affect. MUSCULOSKELETAL VISUAL INSPECTION CERVICAL: WNL THORACIC: WNL LUMBAR: WNL PALPATION: SPINOUS PROCESS: pain. PARASPINALS: Pain. MUSCLE BULK: Normal and symmetrical in the upper AND lower extremities. MUSCLE TONE: Normal. MOTOR: 5/5 in all muscle groups. SENSORY: Normal sensory exam GAIT: Normal. Some difficulty with walking on toes REFLEXES: +2 to bilateral U/L extremities. STRAIGHT LEG TEST: Ipsilateral: Negative. Contralateral: Negative. NEURO TESTS: RIGHT HIP EXAM: DREW EXAM: Normal TROCHANTERIC BURSA TENDERNESS: Normal LEFT HIP EXAM: DREW EXAM: Normal TROCHANTERIC BURSA TENDERNESS: Normal DATA REVIEW [facility] records reviewed Images reviewed with the patient MRI with large right sided herniated disc at L5/S1 compressing S1 nerve root. Lumbar XR demonstrates mild DDD in lumbar spine. No fracture or instability. ASSESSMENT/PLAN IMPRESSION: (M54.5, G89.29) Chronic right-sided low back pain without sciatica (primary encounter diagnosis) Patient is a pleasant 41 year old female that presents predominantly with back pain, occasional right leg pain in S1 distribution which is not main concern. She does have a large herniated disc to the right at L5/S1. Explained to patient that we do not recommend a discectomy for back pain. If her main complaint ws right leg pain, which it is not, a discectomy would be reasonable. Also discussed weight loss with patient as this may help her symptoms and if symptoms altered course in future, would recommend her BMI to be under 40 for any surgical intervention. 1. No Orders Entered Today 2. Follow up: PRN The majority of the visit was spent counseling and/or coordinating care for the patient. The patient was counseled regarding lumbar spine. Total face to face time was 45 minutes. SIGNATURE: Chapis Wolfe PA-C PATIENT NAME: Petra Jallohllolya Groves DATE: November 10, 2017 TIME: 11:43 AM PAGER: SHAYY Observed: 11/10/2017 Status: COMPLETED Source: [place] 11:00 AM [facility] REPOS[facility] Office Visit (SPNSMN) ROSITA PETRA GROVES ([id number]) 1975 F Date Time Provider Department 11/10/17 11:00 AM CHAPIS WOLFE) SPNSMN During your visit today, we recorded the following information about you: Pulse Respiration Blood pressure Weight 78/minute 18/minute 135/89 129.3 kg Height 1.727 m Margarita Denis MA 11/10/2017 11:38 AM Signed Patient is not on any medications at this time. Chapis Felix MA (Gina) 11/13/2017 11:44 AM Signed SPINE SURGERY NEW PATIENT PCP: Darinel Guillaume REFERRING PROVIDER: SELF SUBJECTIVE HISTORY OF PRESENT ILLNESS: Petra Groves is a 41 year old female presenting with spouse. CHIEF COMPLAINT: back pain PRECIPITATING EVENT: fall on wet leaf Patient presents for 2nd opinion. Back pain began in April, patient fell on wet leaf. Pain in low back described as aching, throbbing and sharp and constant in nature. Occasional right posterior leg pain tht occurs a couple times per week. Gabapentin- Afraid of Side effects no relief PT- One month ago- A few hours relief after she does it Chiropractor without relief PAIN EVALUATION 11/10/2017 Pain Score: 7 Pain Location: Back-Lower Description: Aching;Stabbing Duration Amount of Time: 8 Duration Units: Months Frequency: Continuous Intervention: Medication;Cold;Heat;Relaxation;Therapeutic techniques-CPRP;Exercise Aggravating Factors: Standing, Walking, Bending Alleviating Factors: Heat application, Stretching Pain Ratio: Pain in the back is greater than in the leg DERMATOMAL DISTRIBUTION: Right: S1 AMBULATORY STATUS: Independent Community Distances PREVIOUS CONSERVATIVE TREATMENTS: Physical Therapy: Date(s) October 2016 to present which has helped her pain Manipulation Gabapentin- Afraid of Side effects no relief PT- One month ago- A few hours relief after she does it Chiropractor without relief PREVIOUS SPINAL SURGERY: None ACTIVE PROBLEM LIST Morbid Obesity (Hcc) Allergic Rhinitis, Cause Unspecified Generalized Anxiety Disorder Vitamin D Deficiency PAST MEDICAL HISTORY Diagnosis Date - Abnormal Papanicolaou smear of cervix and cervical HPV 1996 colposcopy-negative since - Allergic rhinitis, cause unspecified - Human papillomavirus in conditions classified elsewhere and of unspecified site - Migraine - Premenstrual tension syndromes PMDD PAST SURGICAL HISTORY Procedure Laterality Date - COLPOSCOPY (VAGINOSCOPY) 12/14/2007 Colposcopy, ECC, JUNIOR pap - GASTRIC BYPASS,OBESE<100CM JARETT-EN-Y 12/14 [place] - INCISION EARDRUM,ASPIR,GEN ANESTH Myringotomy/tubes - LAPAROSCOPIC CHOLEYCYSTECTOMY 01/14 - REMOVE TONSILS/ADENOIDS,<12 Y/O Tonsil/adenoidectomy FAMILY HISTORY Problem Relation Age of Onset - Thyroid Mother - Asthma Mother - GI Mother GERD - Diabetes Mother - Migraine [OTHER] Mother - Lipids Father - Hypertension Father - Diabetes Maternal Grandmother - Stroke Maternal Grandmother - Diabetes Maternal Grandfather - Diabetes Paternal Grandmother - Diabetes Maternal Aunt - Diabetes Maternal Uncle - Cancer Paternal Grandfather pancreatic - Glaucoma [OTHER] Paternal Grandfather - Nephrolithiasis [OTHER] Paternal Grandfather - Seizures Maternal Aunt x 2 Social History Marital status: Spouse name: Lewis Years of education: Number of children: 1 Occupational History Occupation Employer Comment [employer] * [employer]* [employer] * Social History Main Topics Smoking status: Never Smoker Smokeless tobacco: Never Used Alcohol use: Yes Comment: rarely Drug use: No Sexual activity: Yes Partners with: Male control/protection: IUD Comment: jesse 03/2013 Social History Narrative Merged History Encounter ALLERGIES Allergen Reactions - Environmental [Othe* Unknown Cats, dust mites, molds, trees, grasses, weeds. - No Known Drug Aller* MEDICATIONS: codeine-guaiFENesin (ROBITUSSIN AC) 10-100 mg/5 mL syrup Take 5-10 mL by mouth four times daily as needed for Cough. May cause drowsiness. Azelastine (ASTEPRO) 0.15 % (205.5 mcg) spry Use 2 Sprays in each nostril once daily as needed. montelukast (SINGULAIR) 10 mg tablet Take 1 tablet by mouth daily at bedtime. olopatadine (PATANOL) 0.1 % ophthalmic solution Use 1-2 Drops in both eyes twice daily as needed. levonorgestrel (MIRENA) 20 mcg/24 hour (5 years) IUD 1 Each by INTRAUTERINE route one time only. ketorolac (ACULAR) 0.5 % ophthalmic solution Use 1 Drop in both eyes four times daily. Cyanocobalamin (VITAMIN B-12) 1,000 mcg SUBLINGUAL Subl Dissolve under the tongue. IRON, FERROUS SULFATE, ORAL Take by mouth once daily. fexofenadine 180 mg ORAL tablet Take 1 tablet by mouth once daily. CHOLECALCIFEROL (VITAMIN D3) 2,000 UNIT CAP Take one(1) capsule daily. REVIEW OF SYSTEMS: Review of Systems Constitutional: Negative Eyes: Negative Hent: Negative Cardiovascular: Negative Respiratory: Negative GI: Negative : Negative Endocrine: Negative Musculoskeletal Positive for Back Pain and Muscle Pain Integumentary: Negative Heme/Lymph: Negative Allergy/Immunologic: Negative Psychiatric: Negative Patient's Review of Systems has been reviewed with the patient and updated as appropriate. OBJECTIVE: PHYSICAL EXAM BP 135/89 Pulse 78 Resp 18 Ht 172.7 cm (5' 8) Wt 129.3 kg (285 lb) BMI 43.33 kg/m? GENERAL APPEARANCE: Obese. NEURO PSYCH: Patient oriented to person, place, and time. Mood pleasant. Benign affect. MUSCULOSKELETAL VISUAL INSPECTION CERVICAL: WNL THORACIC: WNL LUMBAR: WNL PALPATION: SPINOUS PROCESS: pain. PARASPINALS: Pain. MUSCLE BULK: Normal and symmetrical in the upper AND lower extremities. MUSCLE TONE: Normal. MOTOR: 5/5 in all muscle groups. SENSORY: Normal sensory exam GAIT: Normal. Some difficulty with walking on toes REFLEXES: +2 to bilateral U/L extremities. STRAIGHT LEG TEST: Ipsilateral: Negative. Contralateral: Negative. NEURO TESTS: RIGHT HIP EXAM: DREW EXAM: Normal TROCHANTERIC BURSA TENDERNESS: Normal LEFT HIP EXAM: DREW EXAM: Normal TROCHANTERIC BURSA TENDERNESS: Normal DATA REVIEW [facility] records reviewed Images reviewed with the patient MRI with large right sided herniated disc at L5/S1 compressing S1 nerve root. Lumbar XR demonstrates mild DDD in lumbar spine. No fracture or instability. ASSESSMENT/PLAN IMPRESSION: (M54.5, G89.29) Chronic right-sided low back pain without sciatica (primary encounter diagnosis) Patient is a pleasant 41 year old female that presents predominantly with back pain, occasional right leg pain in S1 distribution which is not main concern. She does have a large herniated disc to the right at L5/S1. Explained to patient that we do not recommend a discectomy for back pain. If her main complaint ws right leg pain, which it is not, a discectomy would be reasonable. Also discussed weight loss with patient as this may help her symptoms and if symptoms altered course in future, would recommend her BMI to be under 40 for any surgical intervention. 1. No Orders Entered Today 2. Follow up: PRN The majority of the visit was spent counseling and/or coordinating care for the patient. The patient was counseled regarding lumbar spine. Total face to face time was 45 minutes. SIGNATURE: Chapis Wolfe PA-C PATIENT NAME: Petra Groves DATE: November 10, 2017 TIME: 11:43 AM PAGER: Referring Provider: SELF [[id number]] Allergies As of Date: 11/10/2017 Noted Allergy Reaction Environmental [Other] 10/27/2002 16 - Unknown Comments: Cats, dust mites, molds, trees, grasses, weeds. No Known Drug Allergies [Other] 07/27/2001 Date Reviewed: 11/10/2017 Reviewed by: Margarita Denis MA - Fully Assessed Reason for Visit: New Patient [172] Primary Visit Diagnosis:Chronic right-sided low back pain without sciatica [M54.5, G89.29] Order(s):CONSULT TO PAIN MGT ANESTHESIA [617755] Order #: [id number]: 1 Prescriptions as of 11/10/2017 Sig: CODEINE 10 MG-GUAIFENESIN 100* Take 5-10 mL by mouth four ti* Patient not taking: Reported on 11/10/2017 AZELASTINE 0.15 % (205.5 MCG)* Use 2 Sprays in each nostril * Patient not taking: Reported on 11/10/2017 MONTELUKAST 10 MG TABLET Take 1 tablet by mouth daily * Patient not taking: Reported on 11/10/2017 OLOPATADINE 0.1 % EYE DROPS Use 1-2 Drops in both eyes tw* Patient not taking: Reported on 11/10/2017 LEVONORGESTREL 20 MCG/24 HR (* 1 Each by INTRAUTERINE route * KETOROLAC 0.5 % EYE DROPS Use 1 Drop in both eyes four * Patient not taking: Reported on 11/10/2017 CYANOCOBALAMIN (VIT B-12) 1,0* Dissolve under the tongue. IRON (FERROUS SULFATE) ORAL Take by mouth once daily. FEXOFENADINE 180 MG TABLET Take 1 tablet by mouth once d* Patient not taking: Reported on 11/10/2017 CHOLECALCIFEROL (VITAMIN D3) * Take one(1) capsule daily. Problem List As Of Date 11/10/2017 Noted Resolved Headache(784.0) [R51] INVALID FOR*05/29/2015 PREMENSTRUAL DYSTHYMIC DISORDER [F34.1] INVALID FOR*05/29/2015 MORBID OBESITY [E66.01] INVALID FOR* ALLERGIC RHINITIS NOS [J30.9] INVALID FOR* INTERTRIGO [L53.8] INVALID FOR*05/29/2015 GENERALIZED ANXIETY DIS [F41.1] INVALID FOR* Abnormal glandular Papanicolaou smear of cervix*INVALID FOR*01/25/2013 Vitamin D Deficiency [E55.9] INVALID FOR* Calcaneal spur [M77.30] INVALID FOR*05/29/2015 Screening breast examination [Z12.31] INVALID FOR*12/11/2016 Visit Notes: >> Margarita Denis MA November 10, 2017 11:34 AM Status: Signed Patient is not on any medications at this time. Margarita Denis MA Encounter Status:Closed by CHAPIS WOLFE PA-C on 11/13/17 MR-MRI LUMBAR Observed: 08/24/2017 Status: F Source: [facility] 12:00 AM [facility] [place] REPOSITORY Images were obtained outside of [facility] [id number] ALLERGIES ALLERGIES DATE TYPE / CODE NAME / CODE REACTION SEVERITY SOURCE 06/08/2018 Drug No Known Unknown [facility] Allergy/[id number](S Allergies/F [facility] NOMED CT) [id number]( Hospital XNORM) Repository 10/27/2002 Miscellaneous OTHER UNKNOWN [facility] Allergy/[id number]([facility] NOMED [facility]) Repository 07/27/2001 Miscellaneous OTHER [facility] Allergy/[id number]([facility] NOMED CT) Repository ENCOUNTERS ENCOUNTERS ADMIT/DISCHARGE ACCOUNT ADMITTING ENCOUNTER LOCATION SOURCE NUMBER CLASS 06/10/2018/06/10/20 [id number] Ambulatory [place] 18 [facility] ing:SDCRoom: Repository [id number] 06/08/2018/06/09/20 [id number] Ambulatory [address] Repository 06/07/2018/06/08/20 [id number] Ambulatory [address] Repository 06/07/2018/06/07/20 [id number] Ambulatory [address] Repository 03/29/2018/03/30/20 [id number] Ambulatory [address] Repository 11/10/2017/11/14/19 [id number] Ambulatory [address] Repository PAYERS PAYERS ENCOUNTER GUARANTOR PAYER SUBSCRIBER SOURCE 06/10/2018 PETRA Walker Primary PETRA L [place] ROSITA Insurance:MEDICAL ROSITA [facility] [id number] [facility] BONDDOB: [place], [place] Number: [id number] Repository [id number]: [phone] [phone] (HP) e Date:[id number] [place] [id number]: 06/10/2018 Secondary NOT GIVENUNK [place] Insurance:SELF PAY [facility] Number: Effective Repository Date:2018-06-07
== END 2018-06-10 10:45 | disposition home or self-care (01) ==
LOC: SDC 08:23 → AC 08:25
PROVIDERS: Obstetrics & Gynecology; Family Provider Family Medicine; PCP Family Medicine; Referring Provider Obstetrics & Gynecology; Visit Provider Obstetrics & Gynecology
PROC: 0UDB8ZZ Extraction of Endometrium, Via Natural or Artificial Opening Endoscopic (ICD-10-PCS; CPT 58558; principal; 2018-06-10 09:05)
DX: N88.2 Stricture and stenosis of cervix uteri (principal); Z30.433 Encounter for removal and reinsertion of intrauterine contraceptive device; E66.01 Morbid (severe) obesity due to excess calories; F41.1 Generalized anxiety disorder; E55.9 Vitamin D deficiency, unspecified; Z68.42 Body mass index [BMI] 45.0-49.9, adult; Z98.84 Bariatric surgery status
CPT/HCPCS: 00952; 58300; 58562; 81025; J7120; J2405